=== PATIENT | female | born 1985 | race Caucasian/White ===

== ENCOUNTER → 2020-11-01 15:54 | Outpatient (CLI) | payer BC, SELFPAY ==
--- NOTE | ~2020-11-01 | MM_ITS ---
EXAMINATION: MM scrn terry implant BI w nicki HISTORY: Screening mammogram TECHNIQUE: Craniocaudal and mediolateral oblique 3-D tomosynthesis images with implant displacement a nd synthetic 2-D images were generated. Craniocaudal and mediolateral oblique views of the breasts wi thout implant displacement were obtained using full field digital mammography. CAD analysis was submi tted and interpreted. COMPARISON: No prior mammogram is available for comparison at this institution. BREAST PARENCHYMAL COMPOSITION: There are scattered areas of fibroglandular density. FINDINGS: There are bilateral subpectoral saline implants. There is no evidence of suspicious mass, c alcification, or architectural distortion to suggest malignancy in either breast. There has been no s uspicious interval change. IMPRESSION: 1. No mammographic evidence of malignancy. 2. Recommend routine screening mammography in one year. BI-RADS Category 1: Negative Reviewed, dictated and finalized at location A.
== END ==
PROVIDERS: Visit Provider Surgery Plastic and Reconstructive Surgery
DX: Z12.31 Encounter for screening mammogram for malignant neoplasm of breast (principal)
CPT/HCPCS: 77063; 77067

== ENCOUNTER → 2020-12-11 00:39 | Outpatient (CLI) | payer OTHER, SELFPAY ==
[2020-12-11 17:38] LABS: SARS-CoV-2 RNA PCR Negative
== END ==
PROVIDERS: PCP Family Medicine; Visit Provider Surgery Plastic and Reconstructive Surgery
DX: Z01.812 Encounter for preprocedural laboratory examination (principal); Z20.822 Contact with and (suspected) exposure to COVID-19
CPT/HCPCS: C9803; U0003; U0005

== ENCOUNTER 2020-12-14 08:41 | Day surgery (SDC) | payer OTHER, SELFPAY ==
[2020-11-23 14:09] VITALS: BMI 35.9
--- NOTE | 2020-12-13 15:23 | WPDANESEPPF ---
Anes - Initial Pre Proc Eval Procedure: Operation Date: 12/14/20 11:30 Proposed Procedures p Bilateral Breast Implant Removal with Capsulectomy - Ermias Louis MD s Bilateral Breast Mastopexy - Ermias Louis MD Date/Time: 12/13/20 15:23 Surgeon: Ermias Louis MD Pre Op Diagnosis: History of Breast Augmentation Patient Data Age: 35 Gender: F Height: 1.63 m Weight: 95 kg Allergies Allergy/AdvReac Type Severity Reaction Status Date / Time morphine Allergy Intermediate Nausea and Verified 12/14/20 10:23 Vomiting Home Medications Medication Instructions Recorded Confirmed Type cetirizine 10 mg tablet 10 mg PO DAILY 04/25/20 12/14/20 History desvenlafaxine succinate 50 mg 50 mg PO DAILY 04/25/20 12/14/20 History tablet,extended release 24 hr docusate sodium 100 mg capsule 100 mg PO DAILY #14 cap 11/21/20 12/14/20 Rx hydrocodone 5 mg-acetaminophen 325 1 tablet PO Q6H PRN #15 tablet 11/21/20 12/14/20 Rx mg tablet ondansetron HCl 4 mg tablet 4 mg PO Q8H #21 tablet 11/21/20 12/14/20 Rx biotin 2,500 mcg PO DAILY 11/23/20 12/14/20 History omega 7-dms-ure-fish oil-krill 1 cap PO DAILY 11/23/20 12/14/20 History [MegaRed Advanced 4-in-1] valacyclovir 500 mg PO Q12H PRN 11/23/20 12/14/20 History Patient hx anesthesia problems: none Family hx anesthesia problems: none [facility] Past Medical History Medical History (Updated 12/13/20 @ 15:23 by Isacc Vargas DO) Anxiety Depression Palpitations Surgical History Surgical History History of cholecystectomy History of eye surgery Social History Social History Smoking status: Former smoker Alcohol intake: current Substance use: never Substance use type: does not use Last use: 2009 Living arrangements: with family Gender identity (if verbalized by the patient): Female Anes - Eval Final PreProcedure Day of Procedure 12/13/20 15:23 Patient weight: obese Heart: regular rate and rhythm Lungs: clear to auscultation and normal air movement Airway: Mallampati scale class II Neurological: alert and oriented Last oral intake: >/= 8 hours ASA classification: II Emergent: no Anesthetic plan: proceed Anesthesia type and monitoring: general LMA and standard monitoring Informed Consent: The patient's anesthetic plan and its attendant risks and benefits were discussed with the patient/family/POA. Questions were solicited and answers provided to the satisfaction of the patient/family/POA.
[2020-12-14 09:13] VITALS: BP 118/77; PULSE 70; RESP 14; TEMP 36.7; O2SAT 100
[2020-12-14] MEDS: LACTATED RINGERS 1,000 ML 30 ML IV CONT ×2 (10:07→14:25)
[2020-12-14] MEDS: SCOPOLAMINE 1.5 MG PATCH TRANSDERM (10:09)
[2020-12-14] MEDS: FAMOTIDINE 20 MG/2 ML VIAL IV PUSH (10:12)
--- NOTE | 2020-12-14 11:01 | WPDHPUPDATE1 ---
History and Physical Update Update Date/Time: 12/14/20 11:01 History and Physical has been reviewed, including an updated exam of the patient. There are NO changes in the patient's condition. Risks, benefits, and alternatives have been discussed and questions answered. Patient agrees to proceed with procedure.
--- NOTE | 2020-12-14 11:20 | P.OP_ITS ---
Procedure Note - Detailed Date of Procedure 12/14/20 Pre-op Diagnosis History of Breast Augmentation Post-op Diagnosis same Procedure Performed 1. Bilateral breast implant removal with capsulectomy 2. Bilateral mastopexy Surgeon Ermias Louis MD Anesthesia general Findings Bilateral superior medial pedicle inverted T mastopexy. No worrisome features of the capsule. Right implant - textured 225 cc Left implant - textured 235 cc Description of Procedure Preoperatively the risks, benefits, alternatives were discussed in extensive detail. I want her to be very realistic about the risks involved as well as expectations. Made sure answered all of her questions are satisfaction. Was very up front honest about the risks of mastopexy as she has had a previous mastopexy completed. I explained the blood supply again today that she is risk of loss () of the nipple / areola. Further she is significantly asymmetric today and she will always have a degree of asymmetry. We also discussed sending the capsule. If she has a smooth implant and no worrisome features she declines sending it. I had a lengthy conversation with her explaining without sending the capsule we can never guarantee no worrisome features of the capsule. She states she is willing to accept this risk and refuses to send the capsule. This was a lengthy open-ended conversation making sure they were well informed of the risks as well as expectations. All questions answered to their satisfaction. Consent obtained. She was taken to the operating room placed supine on the operating room table. Anesthesia was provided by anesthesiology. She was prepped and draped in a standard sterile fashion. Surgical time-out was taken. 1% lidocaine and 0.25% Marcaine with epinephrine was used to provide a field block. A 15 blade used to make incision just inferior. Dissection was continued until implant was identified excised the capsule. There was no worrisome features. I then copiously irrigated with 3 L of bacitracin saline. I tailor tacked the breast into position. Verified my markings. The nipple- areolar complex was marked at 42 mm. I de-epithelialized the superior medial pedicle. I then de-epithelialized remainder of the tissue. Created aug mentations inferior based with bilateral tissue. Prior to tack this down I did place bilateral Ryan 15 drains which were sutured into place with nylon. Inferiorly based soft tissue flaps were tacked deep to the breast using 2-0 PDS. I then again tailor tacked the breast into place and put her in a sitting position. I marked out the nipple-areolar complex this was based on preoperative markings, measurements, intraoperative observations and measurements which were in full agreement. I de-epithelialized the remaining portion this nipple-areolar complex. It was inset with 3-0 Monocryl. I closed the vertical and inferior incisions with 2-0 PDS. I closed IMF with 3-0 strata fix, the vertical and around the areola with 3-0 Monocryl and then ran a running subcuticular 4-0 Monocryl for the final closure. Tissue glue was placed. This follow-up dressings and a surgical bra planned. woken and taken to the PACU without difficulty. All instrument sponge counts were correct at the end of the case. Estimated Blood Loss 75 Drains Yes ( Bilateral Ryan) Packing No Pathology none sent Complications No immediate complications Condition stable Disposition PACU
[2020-12-14] MEDS: ceFAZolin SODIUM 2 GM/20 ML SW SYRINGE IV PUSH (11:26)
[2020-12-14] MEDS: LIDO 1%/EPINEPHRINE 1:100,000 20 ML VIAL 30 ML INFILTRATE (12:06)
[2020-12-14] MEDS: BUPIVACAINE HCL 0.25% 50 ML VIAL 30 ML INFILTRATE (12:13)
[2020-12-14 14:25] VITALS: BP 138/79; PULSE 100; RESP 18; TEMP 36.8; O2SAT 100
[2020-12-14 14:40] VITALS: BP 117/81; PULSE 88; RESP 161; O2SAT 100
[2020-12-14 14:49] VITALS: BP 135/86; PULSE 91; RESP 18; O2SAT 100
--- NOTE | 2020-12-14 15:00 | WPDANESPN ---
Anes - Prog Note Post-Op Date/Time: 12/14/20 15:00 Cardiovascular status: normal Respiratory status: normal Airway patency: baseline Mental status: baseline Post-Op hydration status: normal Vital Signs: Last Vital Signs Temp 36.8 C 12/14/20 14:25 Pulse 91 12/14/20 14:49 Resp 18 12/14/20 14:49 BP 135/86 12/14/20 14:49 Pulse Ox 100 12/14/20 14:49 Pain Score (VAS): 1 I/O: Intake & Output 12/13/20 12/14/20 12/14/20 23:59 07:59 15:59 Intake Total 1000 Balance 1000 Post-procedural complaints: none Patient Feedback: Patient satisfied with anesthetic care. Other Findings: Patient vital signs back to baseline. Patient denies nausea and vomiting. Patient's pain under control. Patient OK for discharge.
[2020-12-14 15:19] VITALS: BP 122/82; PULSE 85; RESP 16; O2SAT 100
[2020-12-14] MEDS: oxyCODONE HCL (*CRX) 5 MG TAB IR PO (15:23)
[2020-12-14] MEDS: ONDANSETRON INJ 4 MG/2 ML VIAL IV PUSH (15:29)
[2020-12-14 15:49] VITALS: BP 127/78; PULSE 82; RESP 18; O2SAT 100
== END 2020-12-14 16:17 | disposition home or self-care (01) ==
PROVIDERS: PCP Family Medicine; Visit Provider Surgery Plastic and Reconstructive Surgery
PROC: (CPT 19342; principal; 2020-12-14 11:30)
PROC: (CPT 19316; 2020-12-14 11:30)
DX: Z98.82 Breast implant status (principal)
CPT/HCPCS: 19328; 19316

== ENCOUNTER 2021-06-11 15:38 | Outpatient (CLI) | payer BC, SELFPAY | END 2021-06-11 15:39 | disposition home or self-care (01) | PROVIDERS: PCP Family Medicine; Visit Provider Urology | DX: Z01.812 Encounter for preprocedural laboratory examination (principal); N39.3 Stress incontinence (female) (male) | CPT/HCPCS: 87086 ==

== ENCOUNTER 2021-06-14 00:13 | Day surgery (SDC) | payer BC, SELFPAY ==
[2021-06-10 15:26] VITALS: BMI 35.2
--- NOTE | 2021-06-10 15:34 | PC.NURSE ---
Report to the Outpatient Waiting Room, entrance under the green pavilion located off [facility], at time 8:15 on date 06/14/21. OR Time: 10:15. - You will be asked a series of questions to screen for COVID 19 for your protection. - A mask is required within the hospital. - No visitors are allowed at this time. Preoperative COVID Testing Requirements: No COVID Test needed if: (proof is required; if not received patient will have Rapid Test prior to entry) - Patient has received COVID Vaccine at least 14 days prior to procedure date or - Patient has positive COVID test result within last 90 days of surgery date. COVID Test needed if above criteria is not met Patients may have clear liquids (water, carbonated beverages, clear teas, apple juice) until 3 hours prior to surgery (7:15) with a maximum of 20 ounces. - No food from midnight until time of surgery Take the following medications with a SIP of water the morning of surgery: PRISTIQ Medications to discontinue per physician: VITAMINS/SUPPLEMENTS Date to take last dose: 06/10/21 Please no make-up, nail korean, hairspray, perfume, deodorant, or body powder the day of surgery. No jewelry (including any body piercings) or valuables the day of surgery, leave them at home. Please take a shower or bath the night before, or the morning of, surgery with an antibacterial soap. Wear comfortable, loose fitting clothing. - Jewelry must be removed prior to entering the operating room. Rings and piercings that are not removed may be cut off. - The hospital will not accept responsibility for valuables. - Please leave all valuables, including medications, at home the day of surgery. If you are going home after surgery, a licensed tow bar driver must drive you home. - NO public transportation without another adult. - We recommend that an adult stay with you for 24 hours following discharge. - We also recommend that you do not drive, make important decision, drink alcoholic beverages, or take any drugs that were not prescribed by your health care provider for at least 24 hours after your discharge time. Follow any additional instructions given to you from your surgeon. Telephone instructions given to GIDEON PARKER and asked if any additional questions and then verbalized understanding. Patient advised to call surgeon office or pre surgery nurse liaison [phone] if any additional questions.
--- NOTE | 2021-06-13 05:26 | PM.IMHP ---
H&P: HPI History of Present Illness Date/Time: 06/13/21 05:26 35 yo with DOMINGA Chief Complaint: dominga Review of Systems Review of Systems: All systems reviewed & are unremarkable except as noted in HPI and below PMFSH Past Medical History Medical History Anxiety Depression Palpitations Surgical History Surgical History History of cholecystectomy History of eye surgery Social History Social History Smoking packs per day: 0.75 Smoking cigarettes per day: 15.0 Years smoked: 10 Smoking pack-years: 7.50 Smoking status: Former smoker Tobacco type: cigarettes Smoking end date: 01/30/10 Alcohol intake: current Alcohol use details: 1-2/MONTH Substance use: never Substance use type: does not use Last use: 2009 Gender identity (if verbalized by the patient): Female Spiritual care concerns: No Meds Home Medications and Allergies Home Medications Medication Instructions Recorded Confirmed Type desvenlafaxine succinate 50 mg 50 mg PO DAILY 04/25/20 06/10/21 History tablet,extended release 24 hr MegaRed Advanced 4-in-1 1 cap PO DAILY 11/23/20 06/10/21 History biotin 2,500 mcg PO DAILY 11/23/20 06/10/21 History fexofenadine [Yasmine] 180 mg PO DAILY 06/10/21 06/10/21 History Allergies Allergy/AdvReac Type Severity Reaction Status Date / Time morphine Allergy Intermediate Nausea and Verified 06/10/21 15:22 Vomiting Exam Narrative: urethral mobillity noted NAD normal breathing Assessment and Plan Assessment and plan (1) DOMINGA (stress urinary incontinence, female): Code(s): N39.3 - Stress incontinence (female) (male) Status: Acute Assessment and Plan: urethral sling
--- NOTE | 2021-06-14 07:11 | WPDHPUPDATE1 ---
History and Physical Update Update Date/Time: 06/14/21 07:11 History and Physical has been reviewed, including an updated exam of the patient. There are NO changes in the patient's condition. Risks, benefits, and alternatives have been discussed and questions answered. Patient agrees to proceed with procedure.
--- NOTE | 2021-06-14 07:33 | P.PNAN_ITS ---
Anes - Initial Pre Proc Eval Procedure: Operation Date: 06/14/21 09:30 Proposed Procedures p Urethral Sling - Tano Thompson MD Date/Time: 06/14/21 07:33 Surgeon: Tano Thompson MD Pre Op Diagnosis: stress incontinence Patient Data Age: 35 Gender: F Height: 1.63 m Weight: 93 kg Allergies Allergy/AdvReac Type Severity Reaction Status Date / Time morphine Allergy Intermediate Nausea and Verified 06/14/21 07:52 Vomiting Home Medications Medication Instructions Recorded Confirmed Type desvenlafaxine succinate 50 mg 50 mg PO DAILY 04/25/20 06/14/21 History tablet,extended release 24 hr MegaRed Advanced 4-in-1 1 cap PO DAILY 11/23/20 06/14/21 History biotin 2,500 mcg PO DAILY 11/23/20 06/14/21 History fexofenadine [Yasmine] 180 mg PO DAILY 06/10/21 06/14/21 History vitamin X07-gmlok acid 1 tablet PO DAILY 06/14/21 06/14/21 History vitamin E 200 unit PO DAILY 06/14/21 06/14/21 History Patient hx anesthesia problems: none Family hx anesthesia problems: none Results Review: All pre-operative results and documents have been reviewed as part of the pre-operative evaluation. [facility] Past Medical History Medical History Anxiety Depression Palpitations Surgical History Surgical History History of cholecystectomy History of eye surgery Social History Social History Smoking packs per day: 0.75 Smoking cigarettes per day: 15.0 Years smoked: 10 Smoking pack-years: 7.50 Smoking status: Former smoker Tobacco type: cigarettes Smoking end date: 01/30/10 Alcohol intake: current Alcohol use details: 1-2/MONTH Substance use: never Substance use type: does not use Last use: 2009 Living arrangements: with family Gender identity (if verbalized by the patient): Female Spiritual care concerns: No Anes - Eval Final PreProcedure Day of Procedure 06/14/21 07:33 Patient weight: obese Heart: regular rate and rhythm Lungs: clear to auscultation and normal air movement Airway: Mallampati scale class II Neurological: alert and oriented Last oral intake: >/= 8 hours ASA classification: II Emergent: no Anesthetic plan: proceed Anesthesia type and monitoring: general GIVS and standard monitoring Results Review: All pre-operative results and documents have been reviewed as part of the pre-operative evaluation. Informed Consent: The patient's anesthetic plan and its attendant risks and benefits were discussed with the patient/family/POA. Questions were solicited and answers provided to the satisfaction of the patient/family/POA.
[2021-06-14 07:44] VITALS: BP 115/58; PULSE 78; RESP 16; TEMP 36.3; O2SAT 100
[2021-06-14] MEDS: LACTATED RINGERS 1,000 ML 30 ML IV CONT (08:03)
[2021-06-14] MEDS: ceFAZolin 2 GM/D5W 50 ML 2 GM/50 ML BAG IVPB (09:17)
[2021-06-14] MEDS: BUPIVACAINE/EPINEPHRINE 0.25% 10 ML VIAL INFILTRATE (09:35)
[2021-06-14 09:48] VITALS: BP 93/62; PULSE 84; RESP 16; O2SAT 96
--- NOTE | 2021-06-14 09:53 | W.PM.PROC2 ---
Procedure Note - Detailed Date of Procedure 06/14/21 Pre-op Diagnosis stress incontinence Post-op Diagnosis same Procedure Performed mid urethral sling cystoscopy Surgeon Tano Thompson MD Indications This is a female with confirm stress urinary incontinence. She desires surgical correction. She understands the risks of bleeding, infection, injury to the urinary tract, vaginal mesh extrusion, urinary tract mesh erosion, obstructive voiding requiring a secondary procedure, hip and leg pain, dyspareunia, inability to improve overactive bladder symptoms. She agrees to proceed. Description of Procedure She was correctly identified. Informed consent obtained. She was brought the operating room. She was given appropriate anesthesia. She was given appropriate perioperative antibiotics. A time-out performed. I marked out the site of the inner thigh incisions. I anesthetized the skin and made those incisions. I anesthetized the anterior vaginal wall over the mid urethra. I made a 1 cm incision. I dissected out laterally taking great care not to injure the refilled vaginal wall. I passed the helical trocars. First on the left. Then on the right. I did this from the thigh incision towards the vaginal incision. The sling was connected to the trocars and brought out through the thigh incision. I tensioned the sling appropriately. I cut and the plastic sheaths. I then closed the incision with 2 0 Vicryl. On cystoscopy there is no tumors or surgical artifact. There was no surgical artifact in the urethra. I cut the excess sling material. Close incisions with glue. She was awakened and transferred to the PACU in stable condition. Implants Urethral sling Drains No Packing No Pathology none sent Complications No immediate complications Condition stable Disposition PACU
[2021-06-14 10:00] VITALS: BP 104/63; PULSE 68; RESP 16
[2021-06-14 10:20] VITALS: BP 103/71; PULSE 66; RESP 18
== END 2021-06-14 10:34 | disposition home or self-care (01) ==
PROVIDERS: PCP Family Medicine; Visit Provider Urology
PROC: (CPT 57288; principal; 2021-06-14 09:30)
DX: N39.3 Stress incontinence (female) (male) (principal); F41.8 Other specified anxiety disorders; Z87.891 Personal history of nicotine dependence; E66.9 Obesity, unspecified; Z68.35 Body mass index [BMI] 35.0-35.9, adult
CPT/HCPCS: 57288; A9270; C1771; J0690; J1100; J2250; J2405; J2704; J3010; J7030; J7120